=== PATIENT | female | born 1950 | race Caucasian/White ===

== ENCOUNTER 2023-05-30 08:00 | Outpatient (NON) | payer MEDICARE, SELFPAY | END 2023-05-30 08:01 | disposition home or self-care (01) | PROVIDERS: Visit Provider Nurse Practitioner | DX: L82.1 Other seborrheic keratosis (principal) | CPT/HCPCS: 88305 ==

== ENCOUNTER 2025-05-04 09:57 | Outpatient (CLI) | payer MEDICARE, SELFPAY ==
--- OUTSIDE RECORDS SUMMARY | 2025-05-04 10:02 | XMS_ITS | Data Portability ---
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 Plan of Treatment Reminders Order Date Submit Date Provider Last Modified By Organization Details Last Modified Time Details Appointments None recorded. Lab TSH + free T4, serum 2024 025 [facility], [address] [place] [address], [address], 5 07:33:19 CBC w/ auto diff 2024 025 [facility], [address] [place] [address], [address], 5 07:33:24 lipid panel, serum 2024 025 [facility], [address] [place] [address], [place], [address], 5 07:33:20 vitamin D, 25-hydrox y, total, serum 2024 025 [facility], [address] [place] [address] 2, [place], [address], 5 07:33:25 CMP, serum or plasma 2024 025 [facility], [address] [place] [address] 2, [place], [address], 5 07:33:21 HbA1c (hemoglob in A1c), blood 2024 025 [facility], [address] [facility] 2, [place], [address], 5 07:33:23 CBC w/ auto diff 2023 024 [facility], [address] [facility] 2, [place], [address], 4 20:09:24 CMP, serum or plasma 2023 024 [facility], [address] [facility] 2, [place], [address], 4 20:09:23 lipid panel, serum 2023 024 [facility], [address] [facility] 2, [place], [address], 4 20:09:23 Referral cardiolog ist referral 2024 025 ayse Alcocer MD, [address], [place], [address], 5 09:19:33 otolaryng ologist referral 2024 025 [facility]), [address] [place] [address] , [facility] 200, [place], [address], 5 08:49:49 Procedures None recorded. Surgeries None recorded. Imaging electroca rdiogram 2024 025 [email or web address] In-Office Order, Internal Use Only DO Not Attach Compendium DO Not Attach Compendium, Do Not Delete/merge, [id number] 12:04:58 US, echocardi ogram, transthor acic, complete, w/ color flow 2024 025 [facility], [address], [place], [address], 07:52:29 SPECT, myocardia l perfusion , multiple - Treadmill 2024 025 [facility], [address], [address], [place], [address], 13:54:53 MAMMO, screening , bilateral 2024 025 [email or web address] [facility], 1 [facility], [place], [address], 10:44:08 Medication Orders rosuvasta tin 20 mg tablet 2024 025 [facility], [facility], [place], [address], 14:50:29 hydrochlo rothiazid e 25 mg tablet 2024 025 [email or web address] [facility], [facility], [place], [address], 14:04:38 Patient TargetsNo targets recorded. Patient Instructions Encounter Date Encounter Id Patient Instructions Last Modified By Organization Details Last Modified Time 11/14/2023 [id number] A healthy lifestyle: care instructions nsuthan Not available 11/14/2023 12:03:03 f/u in 6 month nsuthan Not available 0 11/14/2023 12:16:39 05/14/2024 [id number] f/u in 6 month nsuthan Not available 05/14/2024 12:21:57 01/06/2025 [id number] tetanus and diphtheria booster: care instructions [email or web address] Not available 01/06/2025 10:44:07 A healthy lifestyle: care instructions [email or web address] Not available 01/06/2025 10:44:08 Plan of care has been discussed with patient including expected therapeutic benefits and potential side effects of prescribed medication and treatments. Patient verbalizes understanding and is in agreement with the plan of care. Patient was instructed to keep all scheduled appointments and contact the clinic for any additional problems. Health Maintenance: - CRC screening (45-75): colonoscopy 2020-repeat in 2025 - Osteoporosis screening: Due at 65. - Lipid screening (>45 unless additional risk factors): ordered - HIV : declined - HepC: declined -Eye exam: 2023 -Dental Exam: 2023 - Immunizations: - Influenza: Due. 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 Referring Physician: Kalee Pierce [facility], Encounter Date: 01/06/2025 Enterostomal Therapy Nurse Referral fo r Hearing difficulty Referring Physician: Kalee Pierce [facility], Encounter Date: 01/06/2025 Results Created Date Observation Date Name Description Value Unit Range Abnormal Flag Note LastModifiedBy Organization Detail LastModifiedTime 01/17/20 24 01/17/2024 LIPID PANEL cholesterol, total 174 mg/dL 100-19 9 Not Available [facility] [address] [place], [address], 01/17/2024 20:09:23 01/17/20 24 01/17/2024 LIPID PANEL triglyceride s 161 mg/dL 0-149 above high normal Not Available [facility] [address] [place], [address], 01/17/2024 20:09:23 01/17/20 24 01/17/2024 LIPID PANEL HDL cholesterol 73 mg/dL 40-999 Not Available [facility] [address] [place], [address], 01/17/2024 20:09:23 01/17/20 24 01/17/2024 LIPID PANEL VLDL cholesterol maty 32 mg/dL 5-40 Not Available [facility] [address] [place], [address], 01/17/2024 20:09:23 01/17/20 24 01/17/2024 LIPID PANEL LDL chol calc (nih) 93 mg/dL 0-99 Not Available [facility] [address] [place] [address], [address], 01/17/2024 20:09:23 01/17/20 24 01/17/2024 COMP. METAB OLIC PANEL (14) glucose 98 mg/dL 70-99 Not Available [facility] [address] [place], [address], 01/17/2024 20:09:23 01/17/20 24 01/17/2024 COMP. METAB OLIC PANEL (14) BUN 15 mg/dL 8-27 Not Available [facility] [address] [place] [address], [address], 01/17/2024 20:09:23 01/17/20 24 01/17/2024 COMP. METAB OLIC PANEL (14) creatinine 0.64 mg/dL 0.76-1 .27 below low normal Not Available [facility] [address] [place] [address], [address], 01/17/2024 20:09:23 01/17/20 24 01/17/2024 COMP. METAB OLIC PANEL (14) eGFR 92 >=60 Units for eGFR value s are mL/mi n/1.7 3 The eGFR Calcu latio n has not been valid ated for patie nts under the age of 18. If test resul ts are displ ayed for a patie nt under the age of 18, disre daniele that value . Not Available [facility] [address] [place] [address], [address], 01/17/2024 20:09:23 01/17/20 24 01/17/2024 COMP. METAB OLIC PANEL (14) BUN/creatini ne ratio 23 10-28 Not Available [facility] [address] [place] [address], [address], 01/17/2024 20:09:23 01/17/20 24 01/17/2024 COMP. METAB OLIC PANEL (14) sodium 140 mmol/ L 134-14 4 Not Available [facility] [address] [place] [address], [address], 01/17/2024 20:09:23 01/17/20 24 01/17/2024 COMP. METAB OLIC PANEL (14) potassium 4.1 mmol/ L 3.5-5. 2 Not Available [facility] [address] [place] [address], [address], 01/17/2024 20:09:23 01/17/20 24 01/17/2024 COMP. METAB OLIC PANEL (14) chloride 99 mmol/ L 96-106 Not Available [facility] [address] [place] [address], [address], 01/17/2024 20:09:23 01/17/20 24 01/17/2024 COMP. METAB OLIC PANEL (14) carbon dioxide, total 25 mmol/ L 20-29 Not Available [facility] [address] [place] [address], [address], 01/17/2024 20:09:23 01/17/20 24 01/17/2024 COMP. METAB OLIC PANEL (14) calcium 9.4 mg/dL 8.7-10 .3 Not Available [facility] [address] [place] [address], [address], 01/17/2024 20:09:23 01/17/20 24 01/17/2024 COMP. METAB OLIC PANEL (14) protein, total 7.0 g/dL 6.0-8. 5 Not Available [facility] [address] [place], [address], 01/17/2024 20:09:23 01/17/20 24 01/17/2024 COMP. METAB OLIC PANEL (14) albumin 4.4 g/dL 3.8-4. 8 Not Available [facility] [address] [place] [address], [address], 01/17/2024 20:09:23 01/17/20 24 01/17/2024 COMP. METAB OLIC PANEL (14) globulin, total 2.6 g/dL 1.5-4. 5 Not Available [facility] [address] [place], [address], 01/17/2024 20:09:23 01/17/20 24 01/17/2024 COMP. METAB OLIC PANEL (14) A/G ratio 2.0 1.2-2. 2 Not Available [facility] [address] [place], [address], 01/17/2024 20:09:23 01/17/20 24 01/17/2024 COMP. METAB OLIC PANEL (14) bilirubin, total 0.6 mg/dL 0.0-1. 2 Not Available [facility] [address] [place], [address], 01/17/2024 20:09:23 01/17/20 24 01/17/2024 COMP. METAB OLIC PANEL (14) alkaline phosphatase 103 IU/L 44-121 Not Available [facility] [address] [place], [address], 01/17/2024 20:09:23 01/17/20 24 01/17/2024 COMP. METAB OLIC PANEL (14) AST (SGOT) 20 IU/L 0-40 Not Available [facility] [address] [place], [address], 01/17/2024 20:09:23 01/17/20 24 01/17/2024 COMP. METAB OLIC PANEL (14) ALT (SGPT) 24 IU/L 0-32 Not Available [facility] [address] [place], [address], 01/17/2024 20:09:23 01/17/20 24 01/17/2024 CBC WITH DIFFE RENTI AL/PL ATELE T WBC 8.9 x10e3 /uL 3.4-10 .8 Not Available [facility] [address] [place], [address], 01/17/2024 20:09:24 01/17/20 24 01/17/2024 CBC WITH DIFFE RENTI AL/PL ATELE T RBC 5.19 x10e6 /uL 3.77-5 .28 Not Available [facility] [address] [place], [address], 01/17/2024 20:09:24 01/17/20 24 01/17/2024 CBC WITH DIFFE RENTI AL/PL ATELE T hemoglobin 15.0 g/dL 11.1-1 5.9 Not Available [facility] [address] [place], [address], 01/17/2024 20:09:24 01/17/20 24 01/17/2024 CBC WITH DIFFE RENTI AL/PL ATELE T hematocrit 46.5 % 34.0-4 6.6 Not Available [facility] [address] [place], [address], 01/17/2024 20:09:24 01/17/20 24 01/17/2024 CBC WITH DIFFE RENTI AL/PL ATELE T MCV 90 fL 79-97 Not Available [facility] [address] [place], [address], 01/17/2024 20:09:24 01/17/2001/17/2024 CBC WITH DIFFE RENTI AL/PL ATELE T MCH 28.9 pg 26.6-3 3.0 Not Available [facility] [address] [place], [address], 01/17/2024 20:09:24 01/17/20 24 01/17/2024 CBC WITH DIFFE RENTI AL/PL ATELE T MCHC 32.3 g/dL 31.5-3 5.7 Not Available [facility] [address] [place], [address], 01/17/2024 20:09:24 01/17/20 24 01/17/2024 CBC WITH DIFFE RENTI AL/PL ATELE T RDW 13.9 % 11.5-1 4.5 Not Available [facility] [address] [place], [address], 01/17/2024 20:09:24 01/17/20 24 01/17/2024 CBC WITH DIFFE RENTI AL/PL ATELE T platelets 419 x10e3 /uL 150-45 0 Not Available [facility] [address] [place], [address], 01/17/2024 20:09:24 01/17/20 24 01/17/2024 CBC WITH DIFFE RENTI AL/PL ATELE T neutrophils 66 % notest b. Not Available [facility] [address] [place], [address], 01/17/2024 20:09:24 01/17/20 24 01/17/2024 CBC WITH DIFFE RENTI AL/PL ATELE T lymphs 26 % notest b. Not Available [facility] [address] [place], [address], 01/17/2024 20:09:24 01/17/20 24 01/17/2024 CBC WITH DIFFE RENTI AL/PL ATELE T monocytes 6 % notest b. Not Available [facility] [address] [place], [address], 01/17/2024 20:09:24 01/17/20 24 01/17/2024 CBC WITH DIFFE RENTI AL/PL ATELE T eos 2 % notest b. Not Available [facility] [address] [place], [address], 01/17/2024 20:09:24 01/17/20 24 01/17/2024 CBC WITH DIFFE RENTI AL/PL ATELE T basos 1 % notest b. Not Available [facility] [address] [place] [address], [address], 01/17/2024 20:09:24 01/17/20 24 01/17/2024 CBC WITH DIFFE RENTI AL/PL ATELE T neutrophils (absolute) 5.9 x10e3 /uL 1.4-7. 0 Not Available [facility] [address] [place], [address], 01/17/2024 20:09:24 01/17/20 24 01/17/2024 CBC WITH DIFFE RENTI AL/PL ATELE T lymphs (absolute) 2.3 x10e3 /uL 0.7-3. 1 Not Available [facility] [address] [place] [address], [address], 01/17/2024 20:09:24 01/17/20 24 01/17/2024 CBC WITH DIFFE RENTI AL/PL ATELE T monocytes(ab solute) 0.5 x10e3 /uL 0.1-0. 9 Not Available [facility] [address] [place] [address], [address], 01/17/2024 20:09:24 01/17/20 24 01/17/2024 CBC WITH DIFFE RENTI AL/PL ATELE T eos (absolute) 0.1 x10e3 /uL 0.0-0. 4 Not Available [facility] [address] [place] [address], [address], 01/17/2024 20:09:24 01/17/20 24 01/17/2024 CBC WITH DIFFE RENTI AL/PL ATELE T baso (absolute) 0.1 x10e3 /uL 0.0-0. 2 Not Available [facility] [address] [place], [address], 01/17/2024 20:09:24 01/17/20 24 01/17/2024 CBC WITH DIFFE RENTI AL/PL ATELE T immature granulocytes 0.2 % notest b. Not Available [facility] [address] [place], [address], 01/17/2024 20:09:24 01/17/20 24 01/17/2024 CBC WITH DIFFE RENTI AL/PL ATELE T immature grans (abs) 0.0 x10e3 /uL 0.0-0. 1 Not Available [facility] [address] [place] [address], [address], 01/17/2024 20:09:24 01/17/20 24 01/17/2024 CBC WITH DIFFE RENTI AL/PL ATELE T NRBC 0 % 0-0 Not Available [facility] [address] [place], [address], 01/17/2024 20:09:24 01/27/2001/27/2025 TSH+F REE T4 TSH 2.530 uIU/m L 0.450- 4.500 Not Available [facility] ([facility]) [address] [facility], [place], [address], 01/27/2025 07:33:19 01/27/20 25 01/27/2025 TSH+F REE T4 T4,free(dire ct) 1.22 NG/dL 0.82-1 .77 Not Available [facility] ([facility]) [address] [place], [address], 01/27/2025 07:33:19 01/27/20 25 01/27/2025 LIPID PANEL cholesterol, total 179 mg/dL 100-19 9 Not Available [facility] ([facility]) [address] [place], [address], 01/27/2025 07:33:20 01/27/20 25 01/27/2025 LIPID PANEL triglyceride s 153 mg/dL 0-149 above high normal Not Available [facility] ([facility]) [address] [place], [address], 01/27/2025 07:33:20 01/27/20 25 01/27/2025 LIPID PANEL HDL cholesterol 74 mg/dL >39 Not Available [facility]) [address] [place], [address], 01/27/2025 07:33:20 01/27/20 25 01/27/2025 LIPID PANEL VLDL cholesterol maty 26 mg/dL 5-40 Not Available [facility] ([facility]) [address] [place], [address], 01/27/2025 07:33:20 01/27/20 25 01/27/2025 LIPID PANEL [facility] mg/dL 0-99 Not Available [facility]) [address] [place], [address], 01/27/2025 07:33:20 01/27/20 25 01/27/2025 COMP. METAB OLIC PANEL (14) glucose 93 mg/dL 70-99 Not Available [facility] ([facility]) [address] [place], [address], 01/27/2025 07:33:21 01/27/20 25 01/27/2025 COMP. METAB OLIC PANEL (14) BUN 15 mg/dL 8-27 Not Available [facility] ([facility]) [address] [place], [address], 01/27/2025 07:33:21 01/27/20 25 01/27/2025 COMP. METAB OLIC PANEL (14) creatinine 0.74 mg/dL 0.57-1 .00 Not Available [facility] ([facility]) [address] [place], [address], 01/27/2025 07:33:21 01/27/20 25 01/27/2025 COMP. METAB OLIC PANEL (14) eGFR 84 mL/mi n/1.7 3 >59 Not Available [facility] ([facility]) [address] [place], [address], 01/27/2025 07:33:21 01/27/20 25 01/27/2025 COMP. METAB OLIC PANEL (14) BUN/creatini ne ratio 20 12-28 Not Available [facility] ([facility]) [address] [place], [address], 01/27/2025 07:33:21 01/27/20 25 01/27/2025 COMP. METAB OLIC PANEL (14) sodium 140 mmol/ L 134-14 4 Not Available [facility] ([facility]) [address] [place], [address], 01/27/2025 07:33:21 01/27/20 25 01/27/2025 COMP. METAB OLIC PANEL (14) potassium 4.3 mmol/ L 3.5-5. 2 Not Available [facility] ([facility]) [address] [place], [address], 01/27/2025 07:33:21 01/27/20 25 01/27/2025 COMP. METAB OLIC PANEL (14) chloride 104 mmol/ L 96-106 Not Available [facility] ([facility]) [address] [place], [address], 01/27/2025 07:33:21 01/27/20 25 01/27/2025 COMP. METAB OLIC PANEL (14) carbon dioxide, total 22 mmol/ L Not Available [facility] ([facility]) [address] [place], [place], [address], 01/27/2025 07:33:21 01/27/20 25 01/27/2025 COMP. METAB OLIC PANEL (14) calcium 9.6 mg/dL 8.7-10 .3 Not Available [facility] ([facility]) [address] [place], [address], 01/27/2025 07:33:21 01/27/20 25 01/27/2025 COMP. METAB OLIC PANEL (14) protein, total 6.7 g/dL 6.0-8. 5 Not Available [facility] ([facility]) [address] [place], [address], 01/27/2025 07:33:21 01/27/20 25 01/27/2025 COMP. METAB OLIC PANEL (14) albumin 4.1 g/dL 3.8-4. 8 Not Available [facility] ([facility]) [address] [place], [address], 01/27/2025 07:33:21 01/27/20 25 01/27/2025 COMP. METAB OLIC PANEL (14) globulin, total 2.6 g/dL 1.5-4. 5 Not Available [facility] ([facility]) [address] [place], [address], 01/27/2025 07:33:21 01/27/20 25 01/27/2025 COMP. METAB OLIC PANEL (14) bilirubin, total 0.6 mg/dL 0.0-1. 2 Not Available [facility] ([facility]) [address] [place], [address], 01/27/2025 07:33:21 01/27/20 25 01/27/2025 COMP. METAB OLIC PANEL (14) alkaline phosphatase 109 IU/L 44-121 Not Available [facility]) [address] [facility], [place], [address], 01/27/2025 07:33:21 01/27/20 25 01/27/2025 COMP. METAB OLIC PANEL (14) AST (SGOT) 16 IU/L 0-40 Not Available [facility] ([facility]) [address] [place], [address], 01/27/2025 07:33:21 01/27/20 25 01/27/2025 COMP. METAB OLIC PANEL (14) ALT (SGPT) 18 IU/L 0-32 Not Available [facility] ([facility]) [address] [place], [address], 01/27/2025 07:33:21 01/27/20 25 01/26/2025 HEMOG LOBIN A1C hemoglobin A1C 5.9 % 4.8-5. 6 above high normal Predi abete s: 5.7 - 6.4 Diabe kofi: >6.4 Glyce brady contr ol for adult s with diabe kofi: <7.0 Not Available [facility] ([facility]) [address] [place], [address], 01/27/2025 07:33:23 01/27/20 25 01/26/2025 CBC WITH DIFFE RENTI AL/PL ATELE T WBC 8.0 x10e3 /uL 3.4-10 .8 Not Available [facility] ([facility]) [address] [place], [address], 01/27/2025 07:33:24 01/27/20 25 01/26/2025 CBC WITH DIFFE RENTI AL/PL ATELE T RBC 5.40 x10e6 /uL 3.77-5 .28 above high normal Not Available [facility] ([facility]) [address] [facility], [place], [address], 01/27/2025 07:33:24 01/27/20 25 01/26/2025 CBC WITH DIFFE RENTI AL/PL ATELE T hemoglobin 15.3 g/dL 11.1-1 5.9 Not Available [facility] ([facility]) [address] [facility], [place], [address], 01/27/2025 07:33:24 01/27/20 25 01/26/2025 CBC WITH DIFFE RENTI AL/PL ATELE T hematocrit 47.1 % 34.0-4 6.6 above high normal Not Available [facility] ([facility]) [address] [facility], [place], [address], 01/27/2025 07:33:24 01/27/20 25 01/26/2025 CBC WITH DIFFE RENTI AL/PL ATELE T MCV 87 fL 79-97 Not Available [facility] ([facility]) [address] [facility], [place], [address], 01/27/2025 07:33:24 01/27/20 25 01/26/2025 CBC WITH DIFFE RENTI AL/PL ATELE T MCH 28.3 pg 26.6-3 3.0 Not Available [facility] ([facility]) [address] [facility], [place], [address], 01/27/2025 07:33:24 01/27/20 25 01/26/2025 CBC WITH DIFFE RENTI AL/PL ATELE T MCHC 32.5 g/dL 31.5-3 5.7 Not Available [facility] ([facility]) [address] [facility], [place], [address], 01/27/2025 07:33:24 01/27/20 25 01/26/2025 CBC WITH DIFFE RENTI AL/PL ATELE T RDW 13.9 % 11.7-1 5.4 Not Available [facility] ([facility]) [address], [place], [address], 01/27/2025 07:33:24 01/27/20 25 01/26/2025 CBC WITH DIFFE RENTI AL/PL ATELE T platelets 324 x10e3 /uL 150-45 0 Not Available [facility] ([facility]) [address] [facility], [place], [address], 01/27/2025 07:33:24 01/27/20 25 01/26/2025 CBC WITH DIFFE RENTI AL/PL ATELE T neutrophils 57 % notest ab. Not Available [facility] ([facility]) [address] [facility], [place], [address], 01/27/2025 07:33:24 01/27/20 25 01/26/2025 CBC WITH DIFFE RENTI AL/PL ATELE T lymphs 34 % notest ab. Not Available [facility] ([facility]) [address] [facility], [place], [address], 01/27/2025 07:33:24 01/27/20 25 01/26/2025 CBC WITH DIFFE RENTI AL/PL ATELE T monocytes 6 % notest ab. Not Available [facility] ([facility]) [address] [facility], [place], [address], 01/27/2025 07:33:24 01/27/20 25 01/26/2025 CBC WITH DIFFE RENTI AL/PL ATELE T eos 2 % notest ab. Not Available [facility] ([facility]) [address] [facility], [place], [address], 01/27/2025 07:33:24 01/27/20 25 01/26/2025 CBC WITH DIFFE RENTI AL/PL ATELE T basos 1 % notest ab. Not Available [facility] ([facility]) [address] [facility], [place], [address], 01/27/2025 07:33:24 01/27/20 25 01/26/2025 CBC WITH DIFFE RENTI AL/PL ATELE T neutrophils (absolute) 4.5 x10e3 /uL 1.4-7. 0 Not Available [facility] ([facility]) [address] [facility], [place], [address], 01/27/2025 07:33:24 01/27/20 25 01/26/2025 CBC WITH DIFFE RENTI AL/PL ATELE T lymphs (absolute) 2.7 x10e3 /uL 0.7-3. 1 Not Available [facility] ([facility]) [address] [facility], [place], [address], 01/27/2025 07:33:24 01/27/20 25 01/26/2025 CBC WITH DIFFE RENTI AL/PL ATELE T monocytes(ab solute) 0.5 x10e3 /uL 0.1-0. 9 Not Available [facility] ([facility]) [address] [facility], [place], [address], 01/27/2025 07:33:24 01/27/20 25 01/26/2025 CBC WITH DIFFE RENTI AL/PL ATELE T eos (absolute) 0.1 x10e3 /uL 0.0-0. 4 Not Available [facility] ([facility]) [address] [facility], [place], [address], 01/27/2025 07:33:24 01/27/20 25 01/26/2025 CBC WITH DIFFE RENTI AL/PL ATELE T baso (absolute) 0.1 x10e3 /uL 0.0-0. 2 Not Available [facility] ([facility]) [address] [place], [address], 01/27/2025 07:33:24 01/27/20 25 01/26/2025 CBC WITH DIFFE RENTI AL/PL ATELE T immature granulocytes 0 % notest ab. Not Available [facility] ([facility]) [address] [facility], [place], [address], 01/27/2025 07:33:24 01/27/2001/26/2025 CBC WITH DIFFE RENTI AL/PL ATELE T immature grans (abs) 0.0 x10e3 /uL 0.0-0. 1 Not Available [facility] ([facility]) [address] [facility], [place], [address], 01/27/2025 07:33:24 01/27/20 25 01/27/2025 VITAM IN D, 25-HY DROXY vitamin D, 25-hydroxy 32.4 NG/mL 30.0-1 00.0 Vitam in D defic iency has been defin ed by the Insti tute of Medic ine and an Endoc rine Socie ty pract ice guide line as a level of serum 25-OH vitam in D less than 20 ng/mL (1,2) . The Endoc rine Socie ty went on to furth er defin e vitam in D insuf ficie ncy as a level betwe en 21 and 29 ng/mL (2). 1. IOM (Inst itute of Medic ine). 2009. Shivama ry refer ence varsha es for calci um and D. Jose Maria rivera DC: [facility] . 2. Kamini howard MF, [place], Bisch off-F errar i ERAZO, et al. Evalu ation , treat ment, and preve ntion of vitam in D defic iency : an Endoc rine Socie ty clini maty pract ice guide line. JCEM. 2010; 96(7) :1911 -30. Not Available [facility] ([facility]) [address] [facility] [facility], [place], [address], 01/27/2025 07:33:25 04/07/20 24 04/04/2024 MAMMO , scree zbigniew, digit al, bilat eral No observ ation record ed. [email or web address] Og [address] , [place], [address], 04/14/2024 13:45:06 05/07/20 24 05/07/2024 MAMMO , diagn ostic , digit al, bilat eral No observ ation record ed. [facility] [address], [place], [address], 05/07/2024 15:38:29 01/20/20 25 01/19/2025 elect rocbrigid diogr am No observ ation record ed. [place] In-Office Order Internal Use Only DO Not Attach Compendium DO Not Attach Compendium, Do Not Delete/merge, [address] 01/19/2025 13:11:30 01/20/20 elect rocar diogr am No observ ation record ed. [email or web address] Not Available 2024 13:53:03 03/18/20 25 03/16/2025 SPECT , myoca rdial perfu fernando, multi ple No observ ation record ed. [facility] Scheduling [address] [place], [address], 03/18/2025 15:09:44 03/18/20 25 03/16/2025 SPECT , myoca rdial perfu fernando, multi ple No observ ation record ed. [facility] Scheduling [address] [place], [address], 03/18/2025 15:09:45 03/21/20 25 03/16/2025 US, echoc ardio gram, trans thora cic, compl ete, w/ color flow No observ ation record ed. [facility] [address] [facility] [address], [place], [address], 03/22/2025 07:52:29 Result Notes None recorded. Problems Name Problem SNOMED Code Status Onset Date Resolution Date Notes Provider Name and Address Organization Details Recorded Time Essential hypertensio n 39967048 Active 2016 Diogo Harris MD Attn: Yanethin g,[address] [place], [address], [facility] 2 11:45:37 Hyperlipide domo 23890918 Active 2016 Diogo Harris MD Attn: Naeem kilpatrick,[address] [facility], [place], [address], [facility] 2 11:45:37 Obesity 905087636 Active 2016 Diogo Harris MD Attn: Naeem kilpatrick,[address] [facility], [place], [address], [facility] 2 11:45:37 Radiologic infiltrate of lung 502562078 Completed 201603/05/2018 Diogo Harris MD Attn: Naeem kilpatrick,[address] [facility], [place], [address], [facility] 8 11:44:53 Mass of palatine tonsil 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 Procedures Surgical History Date Name Laterality Status Provider Name and Address Organization Details Recorded Time 02/18/20 21 Colonoscopy with biopsy completed RORO Joshua [facility] 02/17/2021 11:49:18 01/01/20 18 Most Recent Mammogram completed Diogo Harris MD Attn: Joe, [address] [place], [address], [facility] 12/31/2017 14:51:26 10/14/18 97 Gastrointestinal Surgery completed Diogo Harris MD Attn: Joe, [address] [place], [address], [facility] 02/11/2017 14:41:30 10/14/18 95 Total hysterectomy completed Alena Bonilla [facility] 02/11/2017 14:27:27 Dilation and Curettage completed Alena Bonilla [facility] 02/11/2017 14:27:16 Imaging Results None recorded. Procedure Notes None recorded. Medical Equipment None Reported. Allergies Allergen ID Allergen Name Allergen Category Reaction Reaction Severity Criticality Documentation Date Start Date Code Code System Note Provider Name and Address Organization Details Recorded Time 90619 adhesive environme nt,medica tion other Not available Not available 02/11/2017 57633 UNK Blist ers Alena kirk, [facility] 7 14:16:57 Medications Name Sig Start Date Stop Date Status Note LastModified by Organization Details LastModified Time amoxicilli n 500 mg capsule 02/11 completed Not Available Not Available Not Available cefuroxime axetil 250 mg tablet 03/05 completed Not Available Not Available Not Available trazodone 50 mg tablet Take 1 tablet every day by oral route. 02/17 completed Not Available Not Available Not Available azithromyc in 250 mg tablet TAKE 2 TABLETS (500 MG) BY ORAL ROUTE ONCE DAILY FOR 1 DAY THEN 1 TABLET (250 MG) BY ORAL ROUTE ONCE DAILY FOR 4 DAYS 08/16 completed Not Available Not Available Not Available benzonatat e 200 mg capsule 02/11 completed Not Available Not Available Not Available hydrocodon e 5 mg-acetami nophen 325 mg tablet 02/11 completed Not Available Not Available Not Available penicillin V potassium 500 mg tablet TAKE 1 TABLET BY MOUTH FOUR TIMES DAILY UNTIL ALL TAKEN 04/22 completed Not Available Not Available Not Available triamcinol one acetonide 0.1 % topical cream APPLY THIN LAYER TOPICALL Y TO THE AFFECTED AREA TWICE DAILY 05/14 completed Not Available Not Available Not Available amoxicilli n 500 mg tablet 02/11 completed Not Available Not Available Not Available simvastati n 40 mg tablet TAKE 1 TABLET BY MOUTH DAILY 02/27 completed Not Available Not Available Not Available ketorolac 0.5 % eye drops INSTILL 1 DROP IN THE OPERATED EYE THREE TIMES DAILY FOR 1 MONTH . BEGIN AFTER BEING SEEN IN THE OFFICE FOR FIRST POST OP VISIT active Not Available Not Available No t Available prednisolo ne acetate 1 % eye drops,susp ension active Not Available Not Available Not Available polymyxin B sulfate 10,000 unit-trime thoprim 1 mg/mL eye drops active Not Available Not Available Not Available codeine 10 mg-guaifen esin 100 mg/5 mL oral liquid TAKE 10 ML BY MOUTH THREE TIMES DAILY FOR 5 DAYS 11/14 completed Not Available Not Available Not Available hydrochlor othiazide 25 mg tablet TAKE 1 TABLET DAILY 01/22 completed Not Available Not Available Not Available zolpidem 5 mg tablet 08/14 completed not taking Not Available Not Available Not Available methylpred nisolone 4 mg tablets in a dose pack FOLLOW PACKAGE DIRECTIO NS 11/14 completed Not Available Not Available Not Available fluticason e propionate 50 mcg/actuat ion nasal spray,susp ension [place] 1 spray every day by intranas al route. 03/05 completed Not Available Not Available Not Available Adult Low Dose Aspirin 81 mg tablet,del ayed release Take 1 tablet every day by oral route. 05/14 completed per cardio. .... Not taking Not Available Not Available Not Available rosuvastat in 20 mg tablet TAKE 1 TABLET DAILY (DISCONT INUE SIMVASTA TIN) active Not Available Not Available No t Available chlorhexid ine gluconate 0.12 % mouthwash 02/11 completed Not Available Not Available Not Available Stool Softener active Not Available Not Available Not Available Vitamin D3 active Not Available Not Av ailable Not Available Prevnar 13 (PF) 0.5 mL intramuscu lar syringe 10/08 completed Not Available Not Available Not Available Fluzone High-Dose 9433-6626 (PF) 180 mcg/0.5 mL intramuscu lar syringe 02/11 completed Not Available Not Available Not Available Fluzone High-Dose (PF) 180 mcg/0.5 mL intramuscu lar syringe 11/20 completed not using Not Available Not Available Not Available Fluzone High-Dose Quad (PF) 240 mcg/0.7 mL IM syringe 02/13 completed Not Available Not Available Not Available Vitals Date Recorded Body height Body weight Body mass index (BMI) Heart rate Respiratory rate Body temperature Oxygen saturation Oxygen saturation in Arterial blood by Pulse oximetry Systolic And Diastolic Provider Name and Address Organization Details Last Updated DateTime 4 171.45 cm 676580. 59 g 35.9 kg/m2 86 /min 16 /min 97.6 [degF] 98 % 98 % 123/83 mm[Hg] Dianne Beckman MA [facility] 4 11:48:38 Date Recorded Body height Body mass index (BMI) Body weight Oxygen saturation Oxygen saturation in Arterial blood by Pulse oximetry Heart rate Respiratory rate Body temperature Systolic And Diastolic Provider Name and Address Organization Details Last Updated DateTime 5 171.45 cm 35.3 kg/m2 273194. 93 g 95 % 95 % 83 /min 16 /min 97.3 [degF] 110/76 mm[Hg] Alena Bonilla MA [facility] 5 10:07:00 Date Recorded Body height Body mass index (BMI) Body weight Respiratory rate Heart rate Oxygen saturation Oxygen saturation in Arterial blood by Pulse oximetry Systolic And Diastolic Provider Name and Address Organization Details Last Updated DateTime 5 171.45 cm 34.6 kg/m2 052822. 69 g 18 /min 80 /min 98 % 98 % 118/70 mm[Hg] Deb Beatty LPN [facility] 5 11:33:44 Date Recorded Body height Body mass index (BMI) Body weight Heart rate Oxygen saturation Oxygen saturation in Arterial blood by Pulse oximetry Systolic And Diastolic Provider Name and Address Organization Details Last Updated DateTime 5 171.45 cm 36.9 kg/m2 948405. 58 g 77 /min 96 % 96 % 116/70 mm[Hg] Rhea Garay RN [facility] 5 11:26:21 Date Recorded Body height Body mass index (BMI) Body weight Heart rate Respiratory rate Body temperature Oxygen saturation Oxygen saturation in Arterial blood by Pulse oximetry Systolic And Diastolic Provider Name and Address Organization Details Last Updated DateTime 4 171.45 cm 35.8 kg/m2 644945. 07 g 98 /min 14 /min 97.3 [degF] 97.3 % 97.3 % 117/85 mm[Hg] Alena Bonilla MA [facility] 4 11:57:54 Social History Question Answer Notes LastModified by Organizat ion Details LastModified Time Tobacco Smoking Status Never Smoker Alena kirk [facility] 02/11/2017 14:24:12 Do You Have An Advance Directive? No Information not available 02/13/2021 Are You Blind Or Do You Have Difficulty Seeing? No Reading Glasses Information not available 09/04/2022 What Is Your Level Of Caffeine Consumption? Moderate 2 Cups Of Coffee Daily Information not available 02/11/2017 How Much Tobacco Do You Chew? None Information not available 02/11/2017 In The 14 Days Before Symptom Onset, Have You Had Close Contact With A Laboratory-confi rmed COVID-19 While That Case Was Ill? No Information not available 06/02/2020 In The 14 Days Before Symptom Onset, Have You Had Close Contact With A Person Who Is Under Investigation For COVID-19 While That Person Was Ill? No Information not available 06/02/2020 Have You Been To An Area Known To Be High Risk For COVID-19? No Information not available 06/02/2020 Are You Deaf Or Do You Have Serious Difficulty Hearing? Yes Some Difficulty Hearing Information not available 05/14/2024 What Type Of Diet Are You Following? REGULAR Information not available 04/22/2023 Which Illicit Or Recreational Drugs Have You Used? Denies Information not available 02/11/2017 Education 4 Year College Information not available 02/11/2017 What Is The Highest Grade Or Level Of School You Have Completed Or The Highest Degree You Have Received? [id number] Information not available 02/13/2021 Are There Any Guns Present In Your Home? Yes [email or web address] Information not available 11/20/2019 Advanced Directive No Information not available 02/13/2021 Alcohol Intake Occasional Informatio n not available 02/13/2021 Caffeine Intake Moderate Informati on not available 02/13/2021 Chewing Tobacco None Informati on not available 02/13/2021 Exercise Level None Informatio n not available 02/13/2021 Lives Alone Or With Others With Others Information not available 02/13/2021 Marital Status Informatio n not available 02/13/2021 Occupation Retired Information not available 02/13/2021 Single Or Multi-level Home/work Single Level Home Information not available 02/13/2021 Tobacco Smoking Status Never Smoker Information not available 02/13/2021 Marital Status Informatio n not available 02/11/2017 What Was The Date Of Your Most Recent Tobacco Screening? 03/23/2025 [email or web address] Information not available 03/23/2025 Performs Monthly Self-breast Exam? No Information not available 02/11/2017 What Is Your Relationship Status? Information not available 02/13/2021 Do You Use Your Seat Belt Or Car Seat Routinely? Yes Information not available 02/13/2021 Seat Belts Used Routinely Yes [email or web address] Information not available 11/20/2019 Smoke Alarm In Home Yes [email or web address] Information not available 11/20/2019 Do You Have Smoke And Carbon Monoxide Detectors In Your Home? Yes Information not available 02/13/2021 How Much Tobacco Do You Smoke? No [email or web address] Information not available 11/20/2019 General Stress Level Low Information not available 02/11/2017 Do You Use Sunscreen Routinely? Yes Information not available 11/20/2019 Has Tobacco Cessation Counseling Been Provided? No Information not available 09/04/2022 Sex: Female Functional Status Question Answer Note LastModified by Organizat ion Details LastModified Time Do you use any illicit or recreational drugs? No Information not available 02/13/2021 Do you or have you ever used any other forms of tobacco or nicotine? No Information not available 02/13/2021 What is your level of alcohol consumption? Occasional Once a month 1-2 glasses of wine Information not available 02/11/2017 Do you or have you ever used smokeless tobacco? Never used smokeless tobacco [email or web address] Information not available 11/20/2019 Are you currently employed? No Information not available 02/13/2021 Are you able to care for yourself? 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 Never used electronic cigarettes [email or web address] Information not available 11/20/2019 What is your exercise level? None Information not available 02/11/2017 Mental Status Question Answer Note LastModified by Organization D etails LastModified Time Do you feel stressed (tense, restless, nervous, or anxious, or unable to sleep at night)? [id number] Information not available 01/06/2025 Family History Relationship Description Onset Age of this Age Resolved Age Notes LastModified by Organization Details LastModified Time Mother Blood coagulation disorder Not available 2016 14:21:49 Mother Malignant tumor of breast Not available 2016 14:22:05 Mother Cerebrovascu lar accident 92 [email or web address] Not available 11:14:36 Mother Heart disease Not available 2016 14:23:26 Mother Osteoporosis Not availa ble 02/11/2017 14:24:03 Mother Cardiac arrhythmia [email or web address] Not available 01/19 11:27:00 Mother Peripheral vascular disease [email or web address] Not available 2024 11:27:12 Father Coronary arterioscler osis Not available 2016 14:22:56 Father Malignant neoplasm of lung Not available 2016 14:23:09 Father Heart disease Not available 2016 14:23:26 Father Hypercholest erolemia Not available 2016 14:23:53 Paternal Grandmother Diabetes mellitus Not available 2016 14:23:37 Brother Diabetes mellitus [email or web address] Not available 11/14 11:45:26 Medical History Condition Response Skin Problems Y Anemia Y High Blood Pressure Y GI Problems Y High Cholesterol Y Gynecological History Statement/Question Response Most Recent Mammogram 12/31/2017 Obstetrics History GPAL:G 0 P 0 0 0 0 Immunizations Vaccine Type Date Status Note Provider Nam e and Address Organization Details Recorded Time Influenza, split virus, quadrivalent, preservative 0 completed LANA BUI Attn: Accounting[address] [facility] [place], [address] [place] [address], [place] [facility] 01/06/2025 09:12:58 Influenza, high-dose, quadrivalent, PF 1 completed ROBERT BUI-BC Attn: [address] [facility], [place], [place], [address] [place] [address], [place] [facility] 01/06/2025 09:12:58 COVID-19, mRNA, LNP-S, PF, 100 mcg/0.5mL dose or 50 mcg/0.25mL dose 1 completed Alena Bonilla [place] null, [place] [facility] 08/17/2021 11:13:55 Influenza, high-dose, quadrivalent, PF 2 completed ROBERT BUI-BC Attn: Accounting[address] [facility], [place], [place], [address] [place] [address], [place] [facility] 01/06/2025 09:12:58 COVID-19, mRNA, LNP-S, PF, 50 mcg/0.5 mL dose 2 completed ROBERT BUI-BC Attn: Accounting[address] [facility], [place], [place], [address] [place] [address], [place] [facility] 01/06/2025 09:12:58 Influenza, high-dose, quadrivalent, PF 3 completed Alena Bon[place], [place] [facility] 07/01/2023 17:52:41 RSV, recombinant, protein subunit RSVpreF, adjuvant reconstituted, 0.5 mL, PF 3 completed Alena Bonilla [place], [place] [facility] 07/01/2023 17:54:30 Influenza, adjuvanted, trivalent, PF 8 completed ROBERT BUI-BC Attn: Accounting[address] [facility], [place], [place], [address] [place] [address], [place] [facility] 01/06/2025 09:12:58 zoster recombinant 2 completed ROBERT BUI-BC Attn: [address]ing[address] [place], [place], [address] [place] [address], [facility] - [facility] 01/06/2025 09:12:58 Influenza, high-dose, quadrivalent, PF 0 completed ROBERT BUI-BC Attn: Accounting,[address] [facility], [place], [place], [address] [place] [address], [facility] 01/06/2025 09:12:58 Influenza, high-dose, quadrivalent, PF 2 completed ROBERT BUI-BC Attn: Accounting,[address] [facility], [place], [place], [address] [place] [address], [facility] 01/06/2025 09:12:58 COVID-19, mRNA, LNP-S, PF, 100 mcg/0.5mL dose or 50 mcg/0.25mL dose 2 completed ROBERT BUI-BC Attn: Accounting[address] [place], [address] [place] [address], [facility] 01/06/2025 09:12:58 COVID-19, mRNA, LNP-S, bivalent, PF, 50 mcg/0.5 mL or 25mcg/0.25 mL dose 2 completed ROBERT BUI-BC Attn: Accounting[address] [place], [address] [place] [address], [facility] 01/06/2025 09:12:58 Pneumococcal conjugate PCV 13 7 completed ROBERT BUI-BC Attn: Accounting[address] [place], [address] [place] [address], [facility] 01/06/2025 09:12:58 Influenza, high-dose, trivalent, PF 6 completed ROBERT BUI-BC Attn: Accounting[address] [place], [address] [place] [address], [facility] 01/06/2025 09:12:58 Influenza, high-dose, trivalent, PF 4 completed ROBRET BUI-BC Attn: Accounting[address] [place], [address], [place] [facility] 01/06/2025 09:12:58 Influenza, high-dose, trivalent, PF 5 completed LANA BUI Attn: Accounting[address] [facility], [place], [address], [place] [facility] 01/06/2025 09:12:58 influenza, unspecified formulation 4 completed DIMITRIOS [place], [place] [facility] 01/06/2025 09:59:19 SARS-COV-2 (COVID-19) vaccine, UNSPECIFIED 4 completed Alena Bon[place], [place] [facility] 01/06/2025 10:00:07 zoster recombinant 2 completed Not Available [facility] 03/23/2025 11:17:02 COVID-19, mRNA, LNP-S, bivalent, PF, 50 mcg/0.5 mL or 25mcg/0.25 mL dose 3 completed Not Available [facility] 03/23/2025 11:17:02 COVID-19, mRNA, LNP-S, PF, lin-sucrose, 30 mcg/0.3 mL 4 completed Not Available [facility] 03/23/2025 11:17:02 Influenza, split virus, quadrivalent, preservative 7 completed Not Available [facility] 10/31/2019 02:39:47 COVID-19, mRNA, LNP-S, PF, 100 mcg/0.5mL dose or 50 mcg/0.25mL dose 1 completed Geena Parrish LPN [place], [place] [facility] 11/24/2020 12:53:33 COVID-19, mRNA, LNP-S, PF, 100 mcg/0.5mL dose or 50 mcg/0.25mL dose 1 completed Abdullahi Gaona [place], [place] [facility] 12/22/2020 12:01:15 Pneumococcal conjugate PCV20, polysaccharide [id number] conjugate, adjuvant, PF 2 completed Al[place] [facility] 09/04/2022 12:49:12 tetanus toxoid, unspecified formulation 3 completed Not Available [facility] 02/17/2021 10:49:41 Tdap 5 completed LANA BUI Attn: Accounting,[address] [facility], [place], [address], [facility] 01/06/2025 14:46:04 Influenza, split virus, quadrivalent, preservative 8 completed Not Available [facility] 02/17/2021 10:49:41 Past Encounters Encounter ID Performer Location Encounter Start Date Encounter Closed Date Diagnosis/Indication Diagnosis SNOMED-CT Code Diagnosis ICD10 Code Diagnosis Note [id number] MD Vivek Olivares (Adult Med) [address] [place] [address] 02/11/2017 13:51:16 02/11/2017 15:33:08 Essential hypertension 37948637 I10 stable continue HCTZ Hyperlipidemia 38118297 E78.5 continue simvastati n Obesity 000675259 E66.9 Vitamin D deficiency 347 55582 E55.9 Adult heal th examination 270705756 Z00.01 pt is uptodate with mmg/ colonoscop y /bone density and tetanus shot pt is going to get Prevnar at [facility] today per pt [id number] [facility] [address] [place] [address] 02/19/2017 12:13:55 02/20/2017 14:58:58 Acute bronchitis 43549921 J20.9 check cxr to r/o pneumonia [id number] KELSIE Herrera (Adult Med) [address] [place] [address] 02/28/2017 08:29:03 02/28/2017 11:24:28 Pneumonia 191968220 J18.9 dwp that lung sounds are clear, cough sounds more upper bronchials . Recommend she start Mucinex BID and drink plenty of water. If she feels cough is getting worse or develops any fevers or chills she can restart the z-pack, but explained that initial treatment is still working in her system since she just completed it Saturday. f/u CXR scheduled 03/20 [id number] [facility] [address] [place] [address] 08/16/2017 10:38:19 08/21/2017 15:31:05 Hyperlipidemia 75044071 E78.5 continue simvastati n Essential hypertension 36765129 I10 stable continue HCTZ Administra tion of influenza vaccine 14053394 Z23 [id number] [facility] [address] [facility] [place] [address] 10/08/2017 09:37:59 10/10/2017 09:09:34 Dysfunction of eustachian tube 89968807 H69.92 possible cause of left ear & throat discomfort . Trial of flonase for one week, call if not better or sxs worsen in one week. Throat irritation 252010 007 R07.0 no signs of pharyngiti s, no LAD noted on exam. treat as above, f/u in one week if not better [id number] [facility] [address] [place] [address] 03/05/2018 10:55:39 03/07/2018 17:26:28 Adult health examination 751465072 Z00.01 pt is uptodate with mmg/ colonoscop y /bone density and tetanus shot pt got Prevnar at [facility] Essential hypertension 15611377 I10 stable continue HCTZ Hyperlipidemia 44159549 E78.5 continue simvastati n Insomnia 284865848 G47.0 0 pt is requesting Ambien since pt is travelling to [facility] -used it in the past and worked well per pt [id number] MD [facility] [address] [place] [address] 08/14/2018 11:29:26 08/14/2018 14:21:28 Essential hypertension 95296345 I10 stable continue HCTZ Hyperlipidemia 36394284 E78.5 continue simvastati n Esophageal dysphagia 408 41058 R13.19 evaluated by ENT and had CT neck in the past and find no abnormalit ycheck Barium swallow [id number] Diogo Harris MD [facility] (Adult Med) [address] [facility] [place] [address] 02/17/2019 10:01:43 02/18/2019 10:02:54 Adult health examination 107101630 Z00.00 pt is uptodate with mmg/ colonoscop y /bone density and tetanus shot pt got Prevnar at [facility] Taking meds as prescribed for HTN/ hyperlipid emia Mass of parotid gland 31 5731764 R22.1 f/u CT neckseen by ENT [id number] Diogo Harris MD [facility] (Adult Med) [address] [place] [place] [address] 11/20/2019 10:55:21 11/23/2019 08:01:50 Essential hypertension 18644911 I10 stable continue HCTZ Hyperlipidemia 49280957 E78.5 continue simvastati n Renewal of prescription 647425372 Z76.0 Vitamin D deficiency 347 93181 E55.9 [id number] Diogo Harris MD [facility] (Adult Med) [address] [place] [place] [address] 06/02/2020 08:21:48 06/03/2020 11:26:07 Essential hypertension 83835418 I10 stable continue HCTZ Hyperlipidemia 68610601 E78.5 continue simvastati n [id number] MD Aura Villanueva 14 IM [address] [place] [facility] [place] [address] [place] [address] 11/24/2020 10:35:36 11/25/2020 08:32:32 Administration of SARS-CoV-2 antigen vaccine [id number] Z23 [id number] MD Aura Villanueva 14 IM 4 [facility] [place] [place] [address] 12/22/2020 10:29:48 12/23/2020 15:46:56 Administration of SARS-CoV-2 antigen vaccine [id number] Z23 [id number] [facility] [address] [facility] [place] [address] 02/13/2021 10:17:41 02/14/2021 10:27:41 Essential hypertension 50577858 I10 stable continue HCTZ Hyperlipidemia 15964174 E78.5 continue simvastati n Atopic dermatitis 600969 01 L20.9 Family his tory of Cardiovascular disease 134730409 Z82.49 pt wants to see cardio [id number] MD Harriett Olivareshalto (Adult Med) [address] [place] [address] 08/17/2021 10:53:06 08/18/2021 12:08:37 Adult health examination 573606350 Z00.00 pt is uptodate with mmg/ colonoscop y /bone density and tetanus shot pt got Prevnar at [facility] Taking meds as prescribed for HTN/ hyperlipid emia Obesity 746387144 E66.9 [id number] MD Vivek Olivares (Adult Med) [address] [place] [address] 03/06/2022 11:07:13 03/07/2022 13:20:05 Essential hypertension 47013951 I10 stable continue HCTZ Hyperlipidemia 21412290 E78.5 continue simvastati n Vitamin D deficiency 347 17161 E55.9 - pt to continue vitd3 1000 units daily Postmenopausal state 764 54276 Z78.0 [id number] MD Vivek Olivares (Adult Med) [address] [place] [address] 09/04/2022 08:53:45 09/10/2022 11:03:04 Essential hypertension 36022236 I10 stable continue HCTZ Hyperlipidemia 16323080 E78.5 continue simvastati n Obesity 377893553 E66.9 Pain of le ft shoulder joint [id number] 6414890 M25.512 -exercise /heat therapypt to call if she wants to go for PT Administra tion of pneumococcal vaccine 46361202 Z23 [id number] MD Vivek Olivares (Adult Med) [address] [place] [address] 04/22/2023 10:50:53 04/23/2023 16:20:51 Essential hypertension 58192067 I10 stable continue HCTZ Hyperlipidemia 33494280 E78.5 continue simvastati n Obesity 693073732 E66.9 [id number] Diogo Harris MD [facility] (Adult Med) [address] [place] [address] 09/02/2023 10:44:33 09/09/2023 15:08:33 COVID-19 074850874 U07.1 -keep good hydration/ restdiscus sed about paxlovid -decided not to take it at this time -will rx symptomati tracey- pt to go to ER if sob or chest pain [id number] Diogo Harris MD [facility] (Adult Med) [address] [place] [address] 11/14/2023 11:35:50 11/18/2023 13:04:23 Essential hypertension 04297539 I10 stable continue HCTZ Hyperlipidemia 22146540 E78.5 continue simvastati n Obesity 102520168 E66.9 Pain of sh oulder region 09830583 M25.519 with thoracic spine area-exerc ise /heat therapy [id number] Diogo Harris MD [facility] (Adult Med) [address] [place] [address] 05/14/2024 11:19:26 05/20/2024 15:43:17 Essential hypertension 03957367 I10 stable continue HCTZ Hyperlipidemia 45471839 E78.5 continue simvastati n [id number] Wallace Espinosa MD [facility] (Adult Med) [address] [place] [address] 01/06/2025 09:50:25 01/07/2025 14:55:41 Dizziness 837762541 R42 -patient reports intermitte nt dizziness symptoms-p atient reports family history of cardiac disease-vicky vicenta would like to see a cardiologi st to ensure no cardiac reason behind her symptoms-r eferral placed-ER precaution s advised Essential hypertension 06129396 I10 -controlle d-BP today in clinic: 110/76 mmHg (Goal <130/80)-H ome BP readings:N /a-Renal function:C reatinine 0.64 (01/17/24)GF R 92 (01/17/24)-D enies chest pain, shortness of breath, headaches, blurred vision, or heart palpitatio ns-Continu e current therapy: Hydrochlor othiazide 25 mg daily-Tren d renal function-R ecommended DASH diet-Discu ssed importance of regular exercise and/or physical activity inthe control of blood pressure.- Discussed low sodium diet w/ <2 g daily, avoidance of caffeine, appropriat e sleep hygiene and quality with >6 hours of uninterrup magnus sleep.-Pat ient to call the clinic with BP <110/70mmH g or >140/90mmH g Hyperlipidemia 93440474 E78.5 -Stable-Li pid panel (01/16/25): cholestero l 174, triglyceri joanne 161, HDL 73, LDL 93-LDL goal <100-ASCVD risk: 17.9%-inte rmediate-D enies myalgia/ar thralgia-C ontinue current therapy: Rosuvastat in 20 mg daily-Rech yas lipid panel-Tren d LFTs-Patie nt educated on the importance of diet, exercise and medication in the management of this condition. Diabetes m ellitus screening 573953357 Z13.1 Administra tion of diphtheria, pertussis, and tetanus vaccine 137591304 Z23 -Patient agreeable to Tdap vaccine.-N P discussed potential side effects and benefits of vaccine. Long-term drug therapy 051076986 Z79.891 Vitamin D deficiency 347 70132 E55.9 -Recommend taking vitamin D supplement cholecalci ferol 1000 internatio nal units by mouth daily-Maxim mmended foods high in vitamin D including: Milk, fortified orange juice, yogurt, salmon, canned tuna, cod liver oil and cereals with vitamin D added-Arti tor vitamin d levels Obesity 117501223 E66.9 SALES MGR advised patient to follow a well balanced diet and obtain regular exercise. Informatio nal handout provided. Screening mammography 24 234950 Z12.31 Hearing difficulty 93018 0000 H91.90 -patient reports increased hearing difficulty -patient previously has seen Dr. Arauz and Dr. Nguyen yadav would like to try alternativ e ENT for an additional opinion [id number] Mino Alcocer MD [facility] [place] [facility] [address] [place] [address] 01/19/2025 11:14:13 01/25/2025 14:48:15 Dizziness 153126804 R42 appears to be posturally related. We will discontinu e HCTZ. I discussed with her regarding hydration, postural precaution s, compressio n stockings. She will exercise lifestyle modificati ons and if symptoms persist we will plan for event monitor to assess arrhythmog enic etiology. Essential hypertension 69347016 I10 Low-sodium diet, ambulatory blood pressure monitoring . Discontinu e HCTZ as above. Hyperlipidemia 11565600 E78.5 Maintained on rosuvastat in 20 mg daily. LDL 93, HDL 73 in January 2024. Plans for upcoming lipid panel with PCP. Obesity 113456972 E66.9 Diet/exerc ise encouraged for weight management . Dyspnea on exertion 6084 5006 R06.09 Z86.16 Obtain echocardio gram to assess for structural /valvular heart disease. Based on findings of echocardio gram, proceed with treadmill nuclear stress test for ischemic risk stratifica tion. Red flag symptoms in the interim reinforced . Plan follow-up after above-ment ioned evaluation . [id number] Mino Alcocer MD [facility] [place] [facility] [address] [place] [address] 03/23/2025 11:16:13 04/14/2025 11:14:33 Obese class II [id number] 64079 E66.812 Dyspnea on exertion 6084 5006 R06.09 No significan t diastolic dysfunctio n, structural heart disease, pulmonary hypertensi on on echocardio gram. Low risk findings on treadmill nuclear stress test. Medical management after shared decision-m aking. Encouraged gradually increasing activity level and exercise and monitoring symptoms to account for component of deconditio zbigniew. Essential hypertension 81035172 I10 Blood pressures remained stable after discontinu ing HCTZ. Encouraged low-sodium diet with ambulatory blood pressure monitoring . Mixed hyperlipidemia 267 948811 E78.2 Continue rosuvastat in 20. Encouraged low-choles terol diet. Has upcoming labs with PCP for monitoring of LFTs. Dizziness 896811913 R42 Symptoms improved after discontinu ing diuretic. Suspect component of postural dizziness. Encouraged hydration, postural precaution s and reaching out to us if symptoms recur to consider long-term rhythm monitoring . Health Concerns Section Related Observation LastModified by Organization Detai ls LastModified Time None Recorded Concern Status LastModified by Organization Details LastModified Time None Recorded Advance Directives Directive N: Payers Insurance Date Sequence Insurance Name Policy Number Policy Jimenez Covered Member ID Jimenez Member ID Guarantor Name 01/06/2025 2 [employer] (PPO) [id number] 03/20/2025 [place] [facility] [id number] [place] 01/06/2025 2 [place] (MEDICARE[place] [address] [place] [id number] [address]ad 04/14/2025 1 [employer] (MEDICARE REPLACEMENT/ ADVANTAGE - PPO) [id number] 01/06/2025 1 [facility] (MEDICARE REPLACEMENT/ ADVANTAGE - PPO) [id number] 11/24/2020 2 *SELF PAY* Ca sy Abad 02/01/2025 2 [place] [facility] [id number] 01/06/2025 1 [place] (MEDICARE[place] Court [id number] Notes Date Note Type Note Provider Name and Address Organization Details Recorded Time 11/14/19 24 text/htm l HyperlipidemiaReported bypatient.Duration:chronic Current Therapy:currently taking: (med) Compliance:compliant Complications:no coronary artery disease Risk Factors:hypertension;obesityHy pertension F/UReported bypatient.Associated Symptoms:no dizziness; no chest pain; no shortness of breath; no palpitations; no edema Lifestyle:regular exercise; limiting/avoiding salt Medications:taking medications as directed; no side effects from medicationShoulderReported bypatient.Hand Dominance:right Location:right Quality:aching Severity:mild Timing:gradual Associated Symptoms:no weakness; no numbness pt had some abnormal feeling in L/side of throat , seen by ENT and had CT neck by ENT specialist and could not find anything abnormal per pt.pt was seen by cardio for eval since she has f/h of heart disease . Diogo Harris MD Attn: Accounting,[address] [facility], [place], [address], [facility] 11/14/2023 12:18:45 05/14/20 24 text/htm l HyperlipidemiaReported bypatient.Duration:chronic Current Therapy:currently taking: (med) Compliance:compliant Complications:no coronary artery disease Risk Factors:hypertension;obesityHy pertension F/UReported bypatient.Associated Symptoms:no dizziness; no chest pain; no shortness of breath; no palpitations; no edema Lifestyle:regular exercise; limiting/avoiding salt Medications:taking medications as directed; no side effects from medication pt was seen by cardio for eval since she has f/h of heart disease . Diogo Harris MD Attn: [facility],[address] [place], [address], [facility] 05/15/2024 13:51:34 01/07/20 25 text/htm l Patient presents to the clinic to establish care. Patient was previously established with Dr. 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 Lester-needing new experimental flight test mechanic -Medical Hx/Surgical Hx: Hypertension, hyperlipidemia, parotid gland mass, total hysterectomy, cholecystectomy, 3 pregnancies-2 miscarriages-1 vaginal delivery-1 living child, and vitamin d deficiency -Family hx:Mother: -old ageFather: -lung cancerMaternal Grandmother: -old ageMaternal Grandfather: -murderedPaternal Grandmother: -DMII complicationsPaternal Grandfather: -[place] -Tobacco/Drug/Alcohol Use:Denies history of tobacco, drug use.Patient reports rare alcohol use. 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 Pleasant 74-year-old with hypertension, mixed hyperlipidemia, family history of CAD and atrial fibrillation. Over the last few months has been noticing NYHA class 2 dyspnea. Also with episodes of postural lightheadedness. No syncope. Denies chest pain or pressure. Reports low normal blood pressure. Denies palpitations, presyncope or syncope. Denies fevers or chills. Denies recent COVID. Cardiac diagnostics:Twelve lead EKG 01/19/2025: Sinus rhythm, no ST-T changes, normal intervals Mino Alcocer MD Attn: Accounting,[address] [place], [address], [facility] 01/22/2025 14:06:08 03/23/20 25 text/htm l Patient presents for follow-up for cardiac etiologies of dyspnea and dizziness. Interval history: After discontinuing HCTZ she has noticed improvement in her dizziness. Stable exertional dyspnea which she attributes to deconditioning. No chest pain or pressure. Blood pressure optimal. Denies palpitations, presyncope or syncope. Cardiac diagnostics:Twelve lead EKG 01/19/2025: Sinus rhythm, no ST-T changes, normal intervals Transthoracic echocardiogram 03/16/2025: LVEF 60-65, indeterminate diastology, RVSP 25, no significant valvular disease Treadmill Myoview, 03/16/2025: No chest pain or EKG changes at 5 minutes 31 seconds on a David protocol, no fixed or reversible perfusion defects. Mino Alcocer MD Attn: Accounting,[address] [place], [address], [facility] 04/12/2025 22:15:52 OBGyn Episode No OBEpisode recorded.
--- OUTSIDE RECORDS SUMMARY | 2025-05-04 10:02 | XMS_ITS | Referral Summary ---
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 Active simvastatin (ZOCOR) 40 mg tablet Take 40 mg by mouth nightly. Active docusate sodium (COLACE) 100 mg capsuleIndicatio ns:constipation Take 100 mg by mouth 2 (two) times a day Active cholecalciferol (VITAMIN D-3) 53590 unit capsule Take 10,000 Units by mouth daily Active Active Problems Problem Noted Date Diagnosed Date Family history of cardiovascular disease 021 Essential hypertension 04/07/2021 Dyslipidemia 04/07/2021 Class 1 obesity due to exces s calories with serious comorbidity and body mass index (BMI) of 34.0 to 34.9 in adult 04/07/2021 Personal history of colonic polyps 12/21/2020 Overview (12/21/2020): Added automatically from request for surgery [id number] Encounter for screening colonoscopy 12/21/2020 Overview (12/21/2020): Added automatically from request for surgery [id number] Chronic tonsillitis 10/08/2018 Assessment & Plan (10/08/2018 8:27 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 A large tonsil stone was dislodged from the left palatine tonsil. This is where the patient localized her symptoms. Discussed nonsurgical and surgical management of cryptic tonsils. Oral hygiene care is recommended. Patient can follow back up as needed. 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/2017): Adhesive capsulitis Social History Tobacco Use Types Packs/Day Years Used Date Smoking Tobacco: Never Smokeless Tobacco: Never Alcohol Use Standard Drinks/Week Comments Yes 0 (1 standard drink = 0.6 oz pur e alcohol) Comments No Sex and Gender Information Value Date Recorded Sex Assigned at Not on file Legal Sex Female 12:43 AM DRY DIP WORKER Gender Identity Female 03/30/2024 3:40 PM CDT Sexual Orientation Not on file Last Filed Vital Signs Vital Sign Reading Time Taken Comments Blood Pressure 120/78 04/07/2021 3:53 PM CDT Pulse 69 04/07/2021 3:53 PM CDT Temperature 36.9 C (98.5 F) 02/17/2021 8:45 AM CDT Respiratory Rate 20 02/17/2021 8:45 AM CDT Oxygen Saturation 97% 04/07/2021 3:53 PM CDT Inhaled Oxygen Concentration - - Weight 102.1 kg (225 lb) 04/04/2024 11:02 AM CDT Height 172.7 cm (5' 8) 04/04/2024 11:02 AM CDT Body Mass Index 34.21 04/04/2024 11:02 AM CDT Plan of Treatment Not on file Procedures Procedure Name Priority Date/Time Associated Diagnosis Comments DIAGNOSTIC MAMMOGRAM BILATERAL W ANTHONY Schedule Routine, Read Routine (OP Routine) 05/07/2024 11:34 AM CDT Other abnormal and inconclusive findings on diagnostic imaging of breast DEXA AXIAL SKELETON BONE DENSITY 1 OR MORE SITES Schedule Routine, Read Routine (OP Routine) 06/20/2022 10:54 AM CDT Asymptomatic menopausal state COLONOSCOPY 02/17/2021 7:06 AM CDT from Last 3 Months or Most Recently Relevant to Health Maintenance Results * Diagnostic Mammogram Bilateral W Anthony (05/07/2024 11:34 AM CDT) Anatomical Region Laterality Modality Breast Bilateral Mammography 05/07/2024 11:4 3 AM CDT Impressions 05/07/2024 12:20 PM CDT No mammographic evidence of malignancy within EITHER breast. OVERALL FINAL ASSESSMENT: BI-RADS Category 1: Negative. RECOMMENDATION: Annual screening mammography is recommended. Dr. Quintin Chowdary discussed the above findings and recommendations with the patient, who expressed her understanding of the management plan. Dictated by: Quintin Chowdary MD The radiology attending physician has personally reviewed this study, and had reviewed and/or edited this written report and agrees with it. Electronically signed by: April Thompson M.D. Narrative 05/07/2024 12:20 PM CDT EXAMINATION: BILATERAL DIGITAL DIAGNOSTIC MAMMOGRAM INCLUDING CAD AND BILATERAL DIGITAL BREAST TOMOSYNTHESIS HISTORY: 74-year-old female called back for bilateral breast asymmetries. Remote history of LEFT breast needle biopsy with reportedly benign pathology. COMPARISON: 04/04/2024 multiple mammograms dating back to 2019 TECHNIQUE: Full field digital mammographic views of BOTH breasts were performed, including computer aided detection (CAD) and BILATERAL digital breast tomosynthesis (DBT). BREAST PARENCHYMAL COMPOSITION: There are scattered areas of fibroglandular density. MAMMOGRAM FINDINGS: Previously noted asymmetry within the central posterior RIGHT breast and inner posterior LEFT breast on craniocaudal views do not persist with additional views compatible with normal overlying fibro-glandular tissue. There is no mass, calcification or architectural distortion suggestive of malignancy within EITHER breast. Procedure Note April Thompson MD - 05/07/2024 EXAMINATION: BILATERAL DIGITAL DIAGNOSTIC MAMMOGRAM INCLUDING CAD AND BILATERAL DIGITAL BREAST TOMOSYNTHESIS HISTORY: 74-year-old female called back for bilateral breast asymmetries. Remote history of LEFT breast needle biopsy with reportedly benign pathology. COMPARISON: 04/04/2024 multiple mammograms dating back to 2019 TECHNIQUE: Full field digital mammographic views of BOTH breasts were performed, including computer aided detection (CAD) and BILATERAL digital breast tomosynthesis (DBT). BREAST PARENCHYMAL COMPOSITION: There are scattered areas of fibroglandular density. MAMMOGRAM FINDINGS: Previously noted asymmetry within the central posterior RIGHT breast and inner posterior LEFT breast on craniocaudal views do not persist with additional views compatible with normal overlying fibro-glandular tissue. There is no mass, calcification or architectural distortion suggestive of malignancy within EITHER breast. IMPRESSION: No mammographic evidence of malignancy within EITHER breast. OVERALL FINAL ASSESSMENT: BI-RADS Category 1: Negative. RECOMMENDATION: Annual screening mammography is recommended. Dr. Quintin Chowdary discussed the above findings and recommendations with the patient, who expressed her understanding of the management plan. Dictated by: Quintin Chowdary MD The radiology attending physician has personally reviewed this study, and had reviewed and/or edited this written report and agrees with it. Electronically signed by: April Thompson M.D. us Diogo Harris MD IMG MAMMO PROCEDURES Final Re sult * Dexa Axial Skeleton Bone Density 1 or 2 Site (06/20/2022 10:54 AM CDT) Anatomical Region Laterality Modality Body N/A Other 06/20/2022 6:22 PM CDT Narrative 06/20/2022 6:25 PM CDT EXAM DESCRIPTION: DEXA AXIAL SKELETON BONE DENSITY 1 OR MORE SITES REASON FOR STUDY: 72 y/o year old F with given history of screening. 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 FINDINGS: AP LUMBAR SPINE L1-L4: Total BMD is 1.334 g/cm2 T-score is 2.6 Dissimilar scan types or analysis methods precludes assessment for calculating a significant change. LEFT HIP: Total BMD is 0.853 g/cm2 T-score is -0.7 Dissimilar scan types or analysis methods precludes assessment for calculating a significant change. Femoral neck BMD is 0.752 g/cm2 T-score is -0.9 FRAX: FRAX not reported due to T-scores of hip, femoral neck and/or spine being at or above -1.0 (Normal). IMPRESSION: Based on the left femoral neck bone mineral density (T-score -0.9 ) the patient has normal bone mass . REFERENCE: Bone mineral density: Normal (T-score above or = -1.0) Low bone mass (T-score between -1.0 and -2.5) replaces the previously used term osteopenia Osteoporosis (T-score = or below -2.5) Medical evaluation for secondary causes of low bone mineral density may be appropriate. FRAX is a World Health Organization validated fracture risk assessment tool that calculates a person's 10 year probability of a major osteoporosis related fracture and hip fracture. According to the National Osteoporosis Foundation guidelines, postmenopausal women and men age 50 or older with low bone mass and a 10 year probability of a major osteoporosis related fracture = or greater than 20% or a 10 year probability of a hip fracture = or greater than 3% should be considered for treatment. For further information, including treatment recommendations, please refer to the 2013 ISCD Official Positions (http://www.iscd.org) and the NOF's Clinician's Guide to Prevention and Treatment of Osteoporosis (http://www.nof.org/professionals/clinical-guidelines) THIS IS AN ELECTRONICALLY VERIFIED FINAL REPORT 06/20/2022 6:25 PM - Electronically signed by Eduardo Castaneda M.D. MF: JUMA Report ID: [id number] Reading Location: [address] Note Eduardo Castaneda MD - 06/20/2022 EXAM DESCRIPTION: DEXA AXIAL SKELETON BONE DENSITY 1 OR MORE SITES REASON FOR STUDY: 72 y/o year old F with given history ofscreening. 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 FINDINGS: AP LUMBAR SPINE L1-L4: Total BMD is 1.334 g/cm2 T-score is 2.6 Dissimilar scan types or analysis methods precludes assessment for calculating a significant change. LEFT HIP: Total BMD is 0.853 g/cm2 T-score is -0.7 Dissimilar scan types or analysis methods precludes assessment for calculating a significant change. Femoral neck BMD is 0.752 g/cm2 T-score is -0.9 FRAX: FRAX not reported due to T-scores of hip, femoral neck and/or spine beingat or above -1.0 (Normal). IMPRESSION: Based on the left femoral neck bone mineral density (T-score -0.9 )the patient has normal bone mass . REFERENCE: Bone mineral density: Normal (T-score above or = -1.0) Low bone mass (T-score between -1.0 and -2.5) replaces thepreviously used term osteopenia Osteoporosis (T-score = or below -2.5) Medical evaluation for secondary causes of low bone mineral density may be appropriate. FRAX is a World Health Organization validated fracture risk assessmenttool that calculates a person's 10 year probability of a major osteoporosisrelated fracture and hip fracture. According to the National OsteoporosisFoundation guidelines, postmenopausal women and men age 50 or older with low bonemass and a 10 year probability of a major osteoporosis related fracture = or greater than 20% or a 10 year probability of a hip fracture = or greaterthan 3% should be considered for treatment. For further information, including treatment recommendations, please referto the 2013 ISCD Official Positions (http://www.iscd.org) and the NOF's Clinician's Guide to Prevention and Treatment of Osteoporosis (http://www.nof.org/professionals/clinical-guidelines) THIS IS AN ELECTRONICALLY VERIFIED FINAL REPORT 06/20/2022 6:25 PM - Electronically signed by Eduardo Castaneda M.D. MF: JUMA Report ID: [id number] Reading Location: [id number] us Diogo Harris MD IMG DXA PROCEDURES Final Resu lt * COLONOSCOPY (02/17/2021 7:06 AM CDT) Anatomical Region Laterality Modality Other Narrative Procedure Note Brian [place] MD - 02/17/2021 7:06 AM CDT [facility] Patient Name: Court Abad Procedure Date: 02/17/2021 7:06 AM Date of : 1950 Admit Type: Outpatient Age: 70 Gender: Female Attending MD: Brian [place] M.D. Room: [facility] ENDOSCOPY ROOM 2 Note Status: Finalized Patient Profile: Refer to note in patient chart for documentation of history and physical. Procedure: Colonoscopy Indications: High risk colon cancer surveillance: Personalhistory of colonic polyps, Last colonoscopy: March 2015 Referring MD: Diogo Harris M.D. Providers: Brian [place] M.D. Impression: - Hemorrhoids found on perianal exam. - The entire examined colon is normal. - The entire examined colon is normal. - No specimens collected. Recommendation: - Discharge patient to home. - Resume previous diet. - Continue present medications. - Repeat colonoscopy in 5 years for surveillance. - Return to primary care physician as previously scheduled. Medicines: Propofol per Anesthesia Complications: No immediate complications. Estimated Blood Loss: Estimated blood loss: none. Procedure: Pre-Anesthesia Assessment: - This assessment was completed [Time ofAssessment] prior to the administration of sedation. The benefits, risks and alternatives of theprocedure and sedation were discussed and informed consentwas obtained. All questions were answered. Please referto the signed informed consent document in the medical record. The bowel preparation used was Miralax via single dose instruction. The bowel preparation used was bisacodyl tablets via single dose instruction.The scope was passed under direct vision. TheColonoscope [id number] was introduced through the anus and advanced to the the cecum, identified by appendiceal orifice and ileocecal valve. The colonoscopy was performed without difficulty. The patient tolerated the procedure well. The qualityof the bowel preparation was excellent. Findings: Hemorrhoids were found on perianal exam. The colon (entire examined portion) appeared normal. The colon (entire examined portion) appeared normal. Electronically signed by Brian [place] M.D. Brian [place] M.D. 02/17/2021 8:13:30 AM Number of Addenda: 0 Note Initiated On: 02/17/2021 7:06 AM Procedure Code(s): --- Professional --- G0105, Colorectal cancer screening; colonoscopy on individual at high risk Diagnosis Code(s): --- Professional --- K64.9, Unspecified hemorrhoids Z86.010, Personal history of colonic polyps CPT copyright 2019 [employer] [place] [employer]. All rights reserved. The codes documented in this report are preliminary and upon decorating kiln operator reviewmay be revised to meet current compliance requirements. Recognized by the [place] [employer] for Gastrointestinal Endoscopy for promoting quality in endoscopy Brian [place] MD ENDOSCOPY PROCEDURES Final Re sult from Last 3 Months or Most Recently Relevant to Health Maintenance Insurance [facility] MEDICARE ADVANTAGE [facility] Address: [address] [address] [place] [address] [facility] MEDICARE [facility] MEDIC[facility] Advance Directives For more information, please contact: [phone] * Full Code (Latest Code Status on File) Date Activated Date Inactivated Comments 02/17/2021 7:09 AM 02/17/2021 1:49 PM Care Teams Green End Worker Relationship Specialty Start Date End Date Kalee [place] NP [address] [facility] [address] [address] PCP - General Nurse Practitioner 03/23/25
--- OUTSIDE RECORDS SUMMARY | 2025-05-04 10:02 | XMS_ITS | Clinical Summary ---
Author Organization [facility] Address [address] [place] [address] Care Team Providers Care Claims Investigator Name Role Phone Kalee Pierce STOCK REPLENISHER Primary Care Provider Allergies Active Allergy Reactions Criticality Noted Date Comments Adhesive Tape-Silicones Medications hydroCHLOROthiaz andi (HYDRODIURIL) 25 mg tablet Take 25 mg by mouth daily. Active simvastatin (ZOCOR) 40 mg tablet Take 40 mg by mouth nightly. Active docusate sodium (COLACE) 100 mg capsuleIndicatio ns:constipation Take 100 mg by mouth 2 (two) times a day Active cholecalciferol (VITAMIN D-3) 14269 unit capsule Take 10,000 Units by mouth [...] (12/21/2020): Added automatically from request for surgery [id number] Encounter for screening colonoscopy 12/21/2020 Overview (12/21/2020): Added automatically from request for surgery [id number] Chronic tonsillitis 10/08/2018 Assessment & Plan (10/08/2018 8:27 AM HOSPICE VOLUNTEER COORDINATOR): Today's examination revealed very cryptic tonsils with tonsillith formation. A large tonsil stone was dislodged from the left palatine tonsil. This is where the patient localized her symptoms. Discussed nonsurgical and surgical management of cryptic tonsils. Oral hygiene care is recommended. Patient can follow back up as needed. 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 Left HYSTERECTOMY 10/14/1994 - 10/13/1995 OOPHORECTOMY 10/14/1994 - 10/13/1995 COLONOSCOPY 03/14/2015 - 04/12/2015 Medical History Medical History Date Comments Hypertension Hypertension Osteoarthritis Osteoarthritis Skin disorder Hyperlipidemia Acid indigestion Pneumonia Anemia Family History Medical History Relation Name Comments Heart block Brother Heart block Father Lung cancer Father Atrial fibrillation Mother Breast cancer Mother Pacemaker Mother Stroke Mother Other Other 1 Family history of Cancer, basal cell; Diabetes Other 2 Family history of Diabetes mellitus; Heart disease Other 3 Family history of Heart disease; Hypertension Other 4 Family history of Hypertension; No Known Problems Sister Relation Name Status Comments Brother Alive Father (Age 80) Mother (Age 91) Other 1 Other 2 Other 3 Other 4 Sister Alive Social History Tobacco Use Types Packs/Day Years Used Date Smoking Tobacco: Never Smokeless Tobacco: Never Alcohol Use Standard Drinks/Week Comments Yes 0 (1 standard drink = 0.6 oz pur e alcohol) Comments No Sex and Gender Information Value Date Recorded Sex Assigned at Not on file Legal Sex Female 12:43 AM HOSPICE VOLUNTEER COORDINATOR Gender Identity Female 03/30/2024 3:40 PM CDT Sexual Orientation Not on file Obstetrics History Para Term AB IAB SAB Ectopic Multiple Livin g Live Births 3 1 1 Date Outcome GA Total Labor Labor/2nd/3rd Weight Sex Type Anes PTL Swathi A1 A5 Name Clin Term Last Filed Vital Signs Vital Sign Reading [...] 04/04/2024 11:02 AM CDT Plan of Treatment Health Maintenance Due Date Last Done Comments Depression Screening 1950 Hepatitis C Screening 1950 DTaP/Tdap/Td Vaccine (1 - Tdap) 1959 Hepatitis B Screening 1966 Zoster Vaccine (1 of 2) 1998 Well Visit 65+ 2013 Pneumococcal vaccine 65+ (2 of 2 - PPSV23) 02/10/2018 02/10/2017 Fall Risk Assessment 02/17/2022 02/17/2021 Osteoporosis Screening-Bone Density Scan 06/20/2024 06/20/2022, 12/18/2016 Influenza Vaccine (#1) 2025 , 07/10/2018, 03/10/2018, Additional history exists Colon Cancer Screening-CT Colonography Discontinued 02/17/2021, 03/29/2015, 03/29/2015 Colon Cancer Screening-Colonoscopy Discontinued 02/17/2021, 03/29/2015, 03/29/2015 Colon Cancer Screening-DNA Stool Discontinued 02/17/2021, 03/29/2015, 03/29/2015 Colon Cancer Screening-FIT Discontinued 02/17, 03/29/2015, 03/29/2015 Colon Cancer Screening-FOBT Discontinued 04/2021, 03/29/2015, 03/29/2015 Colon Cancer Screening-Sigmoidoscopy Discontinued 02/17/2021, 03/29/2015, 03/29/2015 Colorectal Cancer Screening Discontinued Breast Cancer Screening-Mammogram Discontinued 05/07/2024, 04/04/2024, 03/08/2023, Additional history exists Procedures Procedure Name Priority Date/Time Associated Diagnosis [...] it. Electronically signed by: April [place] M.D. Diogo Harris MD IMG MAMMO PROCEDURES Final [...] F with given history of screening. 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 MF: JUMA Report ID: [id number] Reading Location: [place] [address] Procedure Note Eduardo Castaneda MD - 06/20/2022 EXAM DESCRIPTION: DEXA AXIAL SKELETON BONE DENSITY 1 OR MORE SITES REASON FOR STUDY: 72 y/o year old F with given history ofscreening. 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 MF: JUMA Report ID: [id number] Reading Location: [place] [address] Diogo Harris MD IMG DXA PROCEDURES Final Resu lt * COLONOSCOPY (02/17/2021 7:06 AM CDT) Anatomical Region Laterality Modality Other Narrative Procedure Note Brian [place] MD - 02/17/2021 7:06 AM CDT [facility] Patient Name: Court Abad Procedure Date: 02/17/2021 7:06 AM Date of : 1950 Admit Type: Outpatient Age: 70 Gender: Female Attending MD: Brian [place] M.D. Room: [facility] ENDOSCOPY ROOM 2 Note Status: Finalized Patient [...] scope was passed under direct vision. TheColonoscope [id number] was introduced through the anus and advanced [...] history of colonic polyps CPT copyright 2019 [place] [employer]. All rights reserved. The codes documented in this report are preliminary and upon cyber security architect reviewmay be revised to meet current compliance requirements. Recognized by the [place] [employer] Gastrointestinal [employer] for promoting quality in endoscopy Brian [place] MD ENDOSCOPY PROCEDURES Final Re sult from Last 3 Months or Most Recently Relevant to Health Maintenance Insurance [employer] MEDICARE ADVANTAGE [facility] Address: [address] [address] [place] [address] [facility] MEDICARE Advance Directives For more information, please contact: [phone] * Full Code (Latest Code Status on File) Date Activated Date Inactivated Comments 02/17/2021 7:09 AM 02/17/2021 1:49 PM Care Teams Claims Investigator Relationship Specialty Start Date End Date Kalee [place] NP [address] [place] [address] [address] [place] [address] PCP - General Nurse Practitioner 03/23/25
--- OUTSIDE RECORDS SUMMARY | 2025-05-04 10:02 | XMS_ITS | Encounter Summary ---
Author Organization [facility] Address [address] [place] [address] Care Team Providers Care Boat Garnisher Name Role Phone Kalee Pierce VICE PRESIDENT OF FINANCE Primary Care Provider Reason for Visit * Reason Onset Date Comments Scheduling Appointments 03/20/2022 Dexa peyton n - left message to reschedule Encounter Details Date Type Department Care Team (Late st Contact Info) Description 03/20/2022 Telephone [facility] [address] [place] [id number] Carlene Kumar RT Scheduling Appointments (Dexa down - left message to reschedule) Social History Tobacco Use Types Packs/Day Years Used Date Smoking Tobacco: Never Smokeless Tobacco: Never Alcohol Use Standard Drinks/Week Comments Yes 0 (1 standard drink = 0.6 oz pur e alcohol) Comments No Sex and Gender Information Value Date Recorded Sex Assigned at Not on file Legal Sex Female 12:43 AM ZMT OPERATOR Gender Identity Female 03/30/2024 3:40 PM CDT Sexual Orientation Not on file documented as of this encounter Plan of Treatment Not on file documented as of this encounter Visit Diagnoses Not on filedocumented in this encounter Care Teams Boat Garnisher Relationship Specialty Start Date End Date Kalee [place] NP [address] [place] [address] [address] [address] PCP - General Nurse Practitioner 03/23/25 documented as of this encounter
== END 2025-05-04 09:58 | disposition home or self-care (01) ==
LOC: ANHBWCAUD 09:57
PROVIDERS: Visit Provider Otolaryngology
DX: H90.3 Sensorineural hearing loss, bilateral (principal); J39.2 Other diseases of pharynx; R13.10 Dysphagia, unspecified
CPT/HCPCS: 92557; 92567

== ENCOUNTER 2025-06-08 09:30 | Outpatient (RCR) | payer MEDICARE, SELFPAY | END 2025-08-09 23:59 | disposition home or self-care (01) | LOC: ANHBWCAUD 09:30 | PROVIDERS: PCP Nurse Practitioner Family; Visit Provider Otolaryngology | DX: Z46.1 Encounter for fitting and adjustment of hearing aid (principal) | CPT/HCPCS: 99199; V5261 ==